=== PATIENT | female | born 1980 | race Two or more races ===

== ENCOUNTER 2020-02-12 14:53 | Emergency (ER) | payer SELFPAY ==
[~2020-02-12] VITALS: Ht 175.3 cm; Wt 78.0 kg
[2020-02-12 15:15] VITALS: BP 150/70
== END 2020-02-12 17:00 | disposition home or self-care (01) ==
LOC: ER 14:53
DX: Z03.818 Encounter for observation for suspected exposure to other biological agents ruled out (principal); Z00.00 Encounter for general adult medical examination without abnormal findings
CPT/HCPCS: 87635; 99283; C9803; 99281